=== PATIENT | female | born 1985 | race African-American/Black ===

== ENCOUNTER 2017-03-19 12:28 | Emergency (ER) | payer OTHER, MEDICAID ==
[2017-03-19 12:52] VITALS: RESP 16; TEMP 98.1
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
[2017-03-19 15:24] VITALS: BP 127/90; PULSE 60; O2SAT 99
== END 2017-03-19 15:23 | disposition home or self-care (01) ==
DX: S16.1XXA Strain of muscle, fascia and tendon at neck level, initial encounter (principal); J45.909 Unspecified asthma, uncomplicated; V59.59XA Passenger in pick-up truck or van injured in collision with other motor vehicles in traffic accident, initial encounter; Y92.410 Unspecified street and highway as the place of occurrence of the external cause